=== PATIENT | male | born 1950 | race Caucasian/White ===

== ENCOUNTER 2023-08-17 02:55 | Inpatient (IN) | payer OTHER ==
[~2023-08-17] VITALS: Ht 177.8 cm; Wt 58.5 kg
[2023-08-17 05:51] LABS: BASOPHILS # (AUTO) 0.2 K/uL (0.0-0.2); HEMATOCRIT 38 % (39-51); HEMOGLOBIN 13.4 g/dL (13.5-17.5); LYMPHOCYTES # (AUTO) 0.3 K/uL (0.8-4.8); LYMPHOCYTES % (AUTO) 1.6 % (20.0-44.0); MEAN CORPUSCULAR HEMOGLOBIN 31 PG (26.0-33.0); MEAN CORPUSCULAR HGB CONC 35 g/dl (31.0-36.0); MEAN CORPUSCULAR VOLUME 89 fL (80-96); MONOCYTES # (AUTO) 1.3 K/uL (0.1-1.30); MONOCYTES % (AUTO) 6.2 % (2.0-12.0); NEUTROPHILS # (AUTO) 19.5 K/uL (1.8-8.9); NEUTROPHILS % (AUTO) 91.2 % (43.0-81.0); PLATELET COUNT (AUTO) 439 K/uL (150-450); RED BLOOD CELL COUNT(AUTO) 4.33 MIL/uL (4.5-6.0); RED CELL DISTRIBUTION WIDTH 13.5 % (11.5-15.0); WHITE BLOOD COUNT (AUTO) 21.4 K/uL (4.3-11.0)
[2023-08-17 05:56] LABS: INR 1.19 (0.91-1.10); PROTHROMBIN TIME 12.5 SECS (9.2-11.1)
[2023-08-17 06:07] LABS: BAND % (MANUAL) 2 % (0.0-5.0); LYMPHOCYTES % (MANUAL) 1 % (16-48); MONOCYTES % (MANUAL) 4 % (0-11.0); NEUTROPHILS % (MANUAL) 93 (42-76); PLATELET ESTIMATE ADEQUATE
[2023-08-17 06:17] LABS: CALCIUM, SERUM 8.4 mg/dL (8.5-10.1); CARBON DIOXIDE 25 mmol/L (21-32); CHLORIDE 90 mmol/L (98-107); CREATININE 0.9 mg/dL (0.6-1.3); GLUCOSE 118 mg/dL (74-106); SODIUM SERUM 127 mmol/L (136-145); UREA NITROGEN, BLOOD 21 mg/dL (7-18)
[2023-08-17] MEDS ORDERED: AZITHROMYCIN 500 MG in IV D5W 250 ML IV ONE (08:00)
[2023-08-17] MEDS ORDERED: IV NS 0.9% 1,000 ML IV ONE (08:00)
[2023-08-17] MEDS ORDERED: CEFTRIAXONE 1GM BAG (ER ONLY) 50 ML IV ONE (08:00)
[2023-08-17] MEDS ORDERED: ALBU18HF2 IH (10:05)
[2023-08-17] MEDS ORDERED: AMLO-212 PO (10:05)
[2023-08-17] MEDS ORDERED: FLUT1BLS6 INH (10:05)
[2023-08-17 11:22] VITALS: BP 148/98; TEMP 97.9; O2SAT 100
[2023-08-17] MEDS: IV NS 0.9% 1,000 ML IV PRN (14:20)
[2023-08-17] MEDS ORDERED: ACETAMINOPHEN 325 MG TABLET PO PRN (14:30)
[2023-08-17] MEDS ORDERED: MAGNESIUM HYDROXIDE 30 ML UDC PO PRN (14:30)
[2023-08-17] MEDS ORDERED: POLYETHYLENE GLYCOL 3350 17 GM POWD.PACK PO PRN (14:30)
[2023-08-17] MEDS ORDERED: Z GUARD REMEDY 4 OZ OINT TP PRN (14:30)
[2023-08-17] MEDS ORDERED: ONDANSETRON HCL/PF 4 MG/2 ML VIAL IVP PRN (14:30)
[2023-08-17] MEDS: CEFTRIAXONE 1 G in IV D5W 50 ML IV SCH (15:10)
[2023-08-17] MEDS: ENOXAPARIN SODIUM 40 MG/0.4 ML DISP.SYRIN SQ SCH (15:44)
[2023-08-17 16:00] VITALS: BP 104/84; TEMP 97.9; O2SAT 100
[2023-08-17] MEDS: AZITHROMYCIN 500 MG in IV D5W 250 ML IV SCH (16:04)
[2023-08-17] MEDS ORDERED: PEG 3350/NA SULF,BICARB,CL/KCL 4,000 ML BOTTLE PO ONE (17:00)
[2023-08-17 20:00] VITALS: BP_SYST 134; BP_DIAS 87; BP_DIAS 97; TEMP 97.7; TEMP 97.9; O2SAT 98
[2023-08-17] MEDS: METRONIDAZOLE 500 MG TABLET PO SCH (20:59)
[2023-08-18] VITALS: BP 111/76; TEMP 97.8; O2SAT 97
[2023-08-18 04:00] VITALS: BP 153/93; TEMP 98.7; O2SAT 98
[2023-08-18] MEDS: IV NS 0.9% 1,000 ML IV PRN (05:01)
[2023-08-18] MEDS: METRONIDAZOLE 500 MG TABLET PO SCH ×3 (05:03→20:21)
[2023-08-18 07:14] LABS: BASOPHILS % (AUTO) 0.1 % (0.0-2.0); EOSINOPHILS % (AUTO) 0.2 % (0.0-6.0); HEMATOCRIT 40 % (39-51); HEMOGLOBIN 13.8 g/dL (13.5-17.5); LYMPHOCYTES # (AUTO) 0.4 K/uL (0.8-4.8); LYMPHOCYTES % (AUTO) 5.5 % (20.0-44.0); MEAN CORPUSCULAR HEMOGLOBIN 31 PG (26.0-33.0); MEAN CORPUSCULAR HGB CONC 34 g/dl (31.0-36.0); MEAN CORPUSCULAR VOLUME 89 fL (80-96); MONOCYTES # (AUTO) 0.6 K/uL (0.1-1.30); MONOCYTES % (AUTO) 8.4 % (2.0-12.0); NEUTROPHILS # (AUTO) 6.3 K/uL (1.8-8.9); NEUTROPHILS % (AUTO) 85.8 % (43.0-81.0); PLATELET COUNT (AUTO) 463 K/uL (150-450); WHITE BLOOD COUNT (AUTO) 7.4 K/uL (4.3-11.0)
[2023-08-18 07:28] LABS: ALBUMIN 2.8 g/dL (3.4-5.0); BILIRUBIN,TOTAL 0.9 mg/dL (0.2-1.0); CALCIUM, SERUM 8.4 mg/dL (8.5-10.1); CREATININE 0.8 mg/dL (0.6-1.3); MAGNESIUM 1.7 mg/dL (1.8-2.4); PHOSPHORUS 2.7 mg/dL (2.5-4.9); POTASSIUM 3.2 mmol/L (3.5-5.1); TOTAL PROTEIN, SERUM 6.3 g/dL (6.4-8.2)
[2023-08-18 07:41] LABS: THYROID STIMULATING HORMONE 8.986 uIU/mL (0.358-3.74)
[2023-08-18] MEDS: PANTOPRAZOLE 40 MG TABLET.DR PO SCH (07:55)
[2023-08-18 08:00] VITALS: BP 155/88; TEMP 98.4; O2SAT 98
[2023-08-18 08:25] LABS: C-REACTIVE PROTEIN 6.9 mg/dL (0.0-0.9)
[2023-08-18] MEDS ORDERED: MAGNESIUM OXIDE 400 MG TABLET PO ONE (11:00)
[2023-08-18] MEDS ORDERED: POTASSIUM CHLORIDE 20 MEQ POWDER PACKET PO ONE (12:00)
[2023-08-18] MEDS: AZITHROMYCIN 500 MG in IV D5W 250 ML IV SCH (14:39)
[2023-08-18] MEDS: ENOXAPARIN SODIUM 40 MG/0.4 ML DISP.SYRIN SQ SCH (14:41)
[2023-08-18] MEDS: CEFTRIAXONE 1 G in IV D5W 50 ML IV SCH (15:52)
[2023-08-18 16:00] VITALS: BP 137/91; TEMP 97.9; O2SAT 99
[2023-08-18 20:00] VITALS: BP 149/88; TEMP 97.9; O2SAT 99
[2023-08-19] MEDS: IV NS 0.9% 1,000 ML IV PRN (00:56)
[2023-08-19 04:00] VITALS: BP 125/85; TEMP 97.8; O2SAT 98
[2023-08-19] MEDS: METRONIDAZOLE 500 MG TABLET PO SCH ×2 (04:54→12:02)
[2023-08-19 06:34] LABS: BASOPHILS % (AUTO) 0.4 % (0.0-2.0); EOSINOPHILS % (AUTO) 0.1 % (0.0-6.0); HEMATOCRIT 37 % (39-51); LYMPHOCYTES # (AUTO) 0.5 K/uL (0.8-4.8); LYMPHOCYTES % (AUTO) 6.4 % (20.0-44.0); MEAN CORPUSCULAR HEMOGLOBIN 31 PG (26.0-33.0); MEAN CORPUSCULAR HGB CONC 35 g/dl (31.0-36.0); MEAN CORPUSCULAR VOLUME 88 fL (80-96); MONOCYTES # (AUTO) 0.7 K/uL (0.1-1.30); NEUTROPHILS % (AUTO) 83.1 % (43.0-81.0); PLATELET COUNT (AUTO) 422 K/uL (150-450); RED BLOOD CELL COUNT(AUTO) 4.22 MIL/uL (4.5-6.0); RED CELL DISTRIBUTION WIDTH 13.9 % (11.5-15.0); WHITE BLOOD COUNT (AUTO) 7.2 K/uL (4.3-11.0)
[2023-08-19 06:55] LABS: CALCIUM, SERUM 8.2 mg/dL (8.5-10.1); CREATININE 0.8 mg/dL (0.6-1.3); MAGNESIUM 1.8 mg/dL (1.8-2.4); PHOSPHORUS 6.9 mg/dL (2.5-4.9); POTASSIUM 3.2 mmol/L (3.5-5.1)
[2023-08-19 07:07] LABS: THYROID STIMULATING HORMONE 8.246 uIU/mL (0.358-3.74)
[2023-08-19] MEDS: PANTOPRAZOLE 40 MG TABLET.DR PO SCH (08:19)
[2023-08-19] MEDS ORDERED: POTASSIUM CHLORIDE 20 MEQ POWDER PACKET PO ONE (11:00)
[2023-08-19 12:00] VITALS: BP 130/85; TEMP 98; O2SAT 98
[2023-08-19] MEDS: CEFTRIAXONE 1 G in IV D5W 50 ML IV SCH (14:40)
[2023-08-19] MEDS: ENOXAPARIN SODIUM 40 MG/0.4 ML DISP.SYRIN SQ SCH (14:58)
[2023-08-19] MEDS: AZITHROMYCIN 500 MG in IV D5W 250 ML IV SCH (15:29)
[2023-08-19 20:00] VITALS: BP 90/69; TEMP 97; O2SAT 97
[2023-08-20 04:00] VITALS: BP 122/87; TEMP 98.6; O2SAT 98
[2023-08-20 06:43] LABS: BASOPHILS % (AUTO) 0.1 % (0.0-2.0); EOSINOPHILS % (AUTO) 0.1 % (0.0-6.0); HEMATOCRIT 41 % (39-51); HEMOGLOBIN 14.2 g/dL (13.5-17.5); LYMPHOCYTES # (AUTO) 0.5 K/uL (0.8-4.8); LYMPHOCYTES % (AUTO) 6.8 % (20.0-44.0); MEAN CORPUSCULAR HEMOGLOBIN 31 PG (26.0-33.0); MEAN CORPUSCULAR HGB CONC 35 g/dl (31.0-36.0); MEAN CORPUSCULAR VOLUME 88 fL (80-96); MONOCYTES # (AUTO) 0.8 K/uL (0.1-1.30); MONOCYTES % (AUTO) 11.2 % (2.0-12.0); NEUTROPHILS # (AUTO) 5.9 K/uL (1.8-8.9); NEUTROPHILS % (AUTO) 81.8 % (43.0-81.0); PLATELET COUNT (AUTO) 447 K/uL (150-450); RED BLOOD CELL COUNT(AUTO) 4.59 MIL/uL (4.5-6.0); RED CELL DISTRIBUTION WIDTH 13.6 % (11.5-15.0); WHITE BLOOD COUNT (AUTO) 7.3 K/uL (4.3-11.0)
[2023-08-20 07:06] LABS: CALCIUM, SERUM 8.8 mg/dL (8.5-10.1); CARBON DIOXIDE 28 mmol/L (21-32); CHLORIDE 96 mmol/L (98-107); CREATININE 0.9 mg/dL (0.6-1.3); GLUCOSE 104 mg/dL (74-106); MAGNESIUM 1.9 mg/dL (1.8-2.4); PHOSPHORUS 2.8 mg/dL (2.5-4.9); POTASSIUM 2.9 mmol/L (3.5-5.1); SODIUM SERUM 134 mmol/L (136-145); UREA NITROGEN, BLOOD 11 mg/dL (7-18)
[2023-08-20] MEDS: PANTOPRAZOLE 40 MG TABLET.DR PO SCH (07:44)
[2023-08-20] MEDS: AZITHROMYCIN 250 MG TABLET PO SCH (08:01)
[2023-08-20] MEDS: ENSURE ENLIVE 237 ML LIQUID (VANILLA) PO SCH ×2 (08:02→17:55)
[2023-08-20] MEDS: POTASSIUM CHLORIDE 20 MEQ TAB.PRT.SR PO SCH ×2 (09:42→09:50)
[2023-08-20] MEDS: POTASSIUM CHLORIDE 20 MEQ POWDER PACKET PO SCH ×2 (10:39→11:16)
[2023-08-20] MEDS: dexaMETHasone SOD PHOSPHATE 4 MG/ML VIAL IV SCH (10:40)
[2023-08-20 12:00] VITALS: BP 133/60; TEMP 98.2; O2SAT 98
[2023-08-20] MEDS: CEFTRIAXONE 1 G in IV D5W 50 ML IV SCH (14:13)
[2023-08-20] MEDS: ENOXAPARIN SODIUM 40 MG/0.4 ML DISP.SYRIN SQ SCH (14:15)
[2023-08-20 20:00] VITALS: BP 130/90; TEMP 98.2; O2SAT 100
[2023-08-21 04:00] VITALS: BP 95/77; TEMP 98.9; O2SAT 100
[2023-08-21 06:26] LABS: BASOPHILS # (AUTO) 0.1 K/uL (0.0-0.2); EOSINOPHILS % (AUTO) 0.2 % (0.0-6.0); HEMATOCRIT 40 % (39-51); HEMOGLOBIN 13.4 g/dL (13.5-17.5); LYMPHOCYTES # (AUTO) 0.8 K/uL (0.8-4.8); LYMPHOCYTES % (AUTO) 10.4 % (20.0-44.0); MEAN CORPUSCULAR HEMOGLOBIN 30 PG (26.0-33.0); MEAN CORPUSCULAR HGB CONC 34 g/dl (31.0-36.0); MEAN CORPUSCULAR VOLUME 88 fL (80-96); MONOCYTES # (AUTO) 0.9 K/uL (0.1-1.30); MONOCYTES % (AUTO) 12.1 % (2.0-12.0); NEUTROPHILS # (AUTO) 5.9 K/uL (1.8-8.9); NEUTROPHILS % (AUTO) 76.3 % (43.0-81.0); PLATELET COUNT (AUTO) 435 K/uL (150-450); RED BLOOD CELL COUNT(AUTO) 4.47 MIL/uL (4.5-6.0); RED CELL DISTRIBUTION WIDTH 14.2 % (11.5-15.0); WHITE BLOOD COUNT (AUTO) 7.7 K/uL (4.3-11.0)
[2023-08-21 06:57] LABS: CREATININE 0.9 mg/dL (0.6-1.3); MAGNESIUM 2.1 mg/dL (1.8-2.4); PHOSPHORUS 2.6 mg/dL (2.5-4.9); POTASSIUM 3.9 mmol/L (3.5-5.1)
[2023-08-21] MEDS: PANTOPRAZOLE 40 MG TABLET.DR PO SCH (07:53)
[2023-08-21] MEDS: ENSURE ENLIVE 237 ML LIQUID (VANILLA) PO SCH ×2 (08:14→18:12)
[2023-08-21] MEDS: AZITHROMYCIN 250 MG TABLET PO SCH (08:52)
[2023-08-21] MEDS: dexaMETHasone SOD PHOSPHATE 4 MG/ML VIAL IV SCH (09:00)
[2023-08-21 12:00] VITALS: BP 149/82; TEMP 98.9; O2SAT 99
[2023-08-21] MEDS: CEFTRIAXONE 1 G in IV D5W 50 ML IV SCH (13:50)
[2023-08-21] MEDS: ENOXAPARIN SODIUM 40 MG/0.4 ML DISP.SYRIN SQ SCH (15:06)
[2023-08-21 16:00] VITALS: BP 140/74; TEMP 97.8
[2023-08-21] MEDS ORDERED: IV NS 0.9% 250 ML IV PRN (17:30)
[2023-08-21 20:00] VITALS: BP 122/82; TEMP 98.4; O2SAT 98
[2023-08-22 04:00] VITALS: BP 148/100; TEMP 97.9; O2SAT 99
[2023-08-22 08:00] VITALS: BP 134/80; TEMP 98; O2SAT 98
[2023-08-22] MEDS: PANTOPRAZOLE 40 MG TABLET.DR PO SCH (09:17)
[2023-08-22] MEDS: dexaMETHasone SOD PHOSPHATE 4 MG/ML VIAL IV SCH (09:17)
[2023-08-22] MEDS: ENSURE ENLIVE 237 ML LIQUID (VANILLA) PO SCH ×2 (09:31→16:43)
[2023-08-22] MEDS ORDERED: ACET325T53 PO (12:56)
[2023-08-22] MEDS ORDERED: CEFT1FRO2 IV (12:56)
[2023-08-22] MEDS: CEFTRIAXONE 1 G in IV D5W 50 ML IV SCH (14:08)
[2023-08-22] MEDS: ENOXAPARIN SODIUM 40 MG/0.4 ML DISP.SYRIN SQ SCH (14:09)
[2023-08-22 16:00] VITALS: BP 100/75; TEMP 97.8; O2SAT 99
[2023-08-22 20:00] VITALS: BP 109/80; TEMP 97.7; O2SAT 96
[2023-08-23 04:00] VITALS: BP 156/96; TEMP 98.7; O2SAT 97
[2023-08-23] MEDS: ENSURE ENLIVE 237 ML LIQUID (VANILLA) PO SCH ×3 (08:00→17:00)
[2023-08-23] MEDS: dexaMETHasone SOD PHOSPHATE 4 MG/ML VIAL IV SCH (09:04)
[2023-08-23] MEDS: PANTOPRAZOLE 40 MG TABLET.DR PO SCH (09:04)
[2023-08-23] MEDS: CEFTRIAXONE 1 G in IV D5W 50 ML IV SCH (14:52)
[2023-08-23] MEDS: ENOXAPARIN SODIUM 40 MG/0.4 ML DISP.SYRIN SQ SCH (14:59)
[2023-08-23] MEDS ORDERED: hydrALAZINE HCL IV 20 MG VIAL IV PRN (21:30)
[2023-08-23 21:40] VITALS: BP 169/102
[2023-08-24] MEDS: PANTOPRAZOLE 40 MG TABLET.DR PO SCH (07:59)
[2023-08-24] MEDS: ENSURE ENLIVE 237 ML LIQUID (VANILLA) PO SCH ×2 (07:59→16:53)
[2023-08-24] MEDS: dexaMETHasone SOD PHOSPHATE 4 MG/ML VIAL IV SCH (08:32)
[2023-08-24] MEDS: ENOXAPARIN SODIUM 40 MG/0.4 ML DISP.SYRIN SQ SCH (14:57)
== END 2023-08-24 18:05 | disposition home health service (06) | DRG 871 ==
LOC: ER 03:00 → TELE-TD 11:03 → TELE1 15:09 → MEDSG1 08-18 14:27
PROVIDERS: ADMIT Nurse Practitioner Family; ATTEND Nurse Practitioner Acute Care
DX: A41.89 Other specified sepsis (principal); J12.82 Pneumonia due to coronavirus disease 2019; U07.1 COVID-19; J15.9 Unspecified bacterial pneumonia; J44.0 Chronic obstructive pulmonary disease with (acute) lower respiratory infection; E44.0 Moderate protein-calorie malnutrition; J98.11 Atelectasis; E22.2 Syndrome of inappropriate secretion of antidiuretic hormone; K56.41 Fecal impaction; D64.9 Anemia, unspecified; E66.01 Morbid (severe) obesity due to excess calories; E87.6 Hypokalemia; E88.09 Other disorders of plasma-protein metabolism, not elsewhere classified; I10 Essential (primary) hypertension; Z87.891 Personal history of nicotine dependence; E86.1 Hypovolemia; L98.8 Other specified disorders of the skin and subcutaneous tissue; C44.90 Unspecified malignant neoplasm of skin, unspecified; T18.5XXA Foreign body in anus and rectum, initial encounter
CPT/HCPCS: 36415; 71045-TC; 74018; 80048-TC; 80053-TC; 80061-TC; 82728-TC; 83540-TC; 83605-TC; 83615-TC; 83735-TC; 84100-TC; 84439-TC; 84443-TC; 84550-TC; 85025-TC; 85730-TC; 86140-TC; 87040-TC; 97110-TC; 97112-TC; 97116-TC; 97530-TC; 97535-TC; A4223; C9803; G0378; J0360; J0456; J0696; J1100; J1650; J7030; J7060